=== PATIENT | male | born 1945 | race Caucasian/White ===

== ENCOUNTER 2016-05-08 11:01 | Emergency (ER) | payer MEDICARE ==
[2016-05-08] MEDS ORDERED: Tobramycin Sulfate 0.3% Ophth Susp 5 ml Bottle ONE (11:24)
== END 2016-05-08 11:30 | disposition home or self-care (01) ==
LOC: MADERS 11:01
DX: H10.9 Unspecified conjunctivitis (principal)
CPT/HCPCS: 99282

== ENCOUNTER 2018-01-12 17:43 | Emergency (ER) | payer MEDICARE ==
[~2018-01-12 17:43] MED LIST: Sodium Chloride 0.9% 1,000 ML BAG ONE
[2018-01-12 18:38] LABS: #Basophils 0.1 thou/uL (0.0-0.2); #Eosinphils 0.1 thou/uL (0.0-0.7); #Monocytes 0.9 thou/uL (0.11-0.59); #Neutrophils 8.1 thou/uL (1.40-6.50); %Basophils 0.7 % (0.0-1.0); %Eosinophils 0.5 % (0.0-10.0); %Lymphocytes 24.9 % (21.0-51.0); Hemoglobin 12.9 g/dL (14.0-18.0); Mean Corpuscular HGB CONC 32.5 g/dL (32.0-36.0); Mean Corpuscular Hemoglobin 26.1 pg (27.0-31.0); Mean Corpuscular Volume 80.3 fL (78.0-98.0); Mean Platelet Volume 8.3 fL (7.4-10.4); Platelet Count 331 thou/uL (130-400); RBC Distribution Width 12.6 % (11.5-14.5); Red Blood Cell (RBC) Count 4.94 mill/uL (4.70-6.10); White Blood Cell (WBC) Count 12.1 thou/uL (4.8-10.8)
[2018-01-12 18:55] LABS: ALT (SGPT) 11 U/L (8-55); AST (SGOT) 15 U/L (5-34); Albumin 3.8 g/dL (3.4-4.8); Alkaline Phosphatase 76 U/L (40-150); Anion Gap 15 mmol/L (10-20); BUN (Urea Nitrogen) 12 mg/dL (8.4-25.7); Bilirubin, Total 0.8 mg/dL (0.2-1.2); Calc. Creatinine Clearance 0 mL/min (70-130); Calcium 9.4 mg/dL (7.8-10.44); Carbon Dioxide 25 mmol/L (23-31); Chloride 104 mmol/L (98-107); Estimated GFR-MDRD Greater than 90; Glucose 103 mg/dL (83-110); Lipase 31 U/L (8-78); Potassium 3.9 mmol/L (3.5-5.1); Protein, Total 6.8 g/dL (5.8-8.1); Sodium 140 mmol/L (136-145)
[2018-01-12 18:56] LABS: Troponin I Less than 0.010 ng/mL (< 0.028)
[2018-01-12] MEDS ORDERED: Ondansetron PF 4 MG/2 ML Vial ONE ×2 (19:16→21:59)
[2018-01-12] MEDS ORDERED: Morphine 4 MG/ML VIAL ONE (19:32)
--- NOTE | 2018-01-12 21:25 | CT ---
CT CONTRAST ENHANCED IMAGES OF THE ABDOMEN AND PELVIS: 01/12/18 HISTORY: Lower abdominal pain for five months. Contrast enhanced CT images of the abdomen and pelvis is obtained after administration of IV and oral contrast. Comparison made to previous exam from 11/01/17. CT images demonstrate the lung bases to be unremarkable. No evidence of free intraperitoneal air or f luid seen. The liver and spleen, gallbladder and pancreas are unremarkable. Adrenal glands and kidneys are unrem arkable. Anterior abdominal wall incision is seen. Numerous and extensively dilated loops of small bowel seen involving the jejunum, duodenum, and the m ajority of the ileum. The distal ileum is more of normal caliber. Findings concerning for small bowel obstruction. The exact point of transition is difficult to see on CT; however it appears to have dil atation in all of the jejunum and the proximal portion of the ileum. I suspect that the area of calib er change is likely in the mid ileum. The terminal ileum is unremarkable. There does appears to be some thickening also seen in the mucosa of the ascending colon. Some moderat e transverse and descending colonic mucosal thickening also seen. Findings may represent changes of c olitis. IMPRESSION: Extensive small bowel dilatation concerning for small bowel obstruction. POS: [facility]
== END 2018-01-12 22:39 | disposition short-term general hospital (02) ==
LOC: MADERS 17:43
DX: K56.609 Unspecified intestinal obstruction, unspecified as to partial versus complete obstruction (principal); K52.9 Noninfective gastroenteritis and colitis, unspecified; Z79.899 Other long term (current) drug therapy; Z79.891 Long term (current) use of opiate analgesic
CPT/HCPCS: 74177; 80053; 82553; 83690; 84484; 85025; 96361; 96374; 96375; J2270; J2405; J7050

== ENCOUNTER 2022-07-16 00:50 | Emergency (ER) | payer OTHER, MEDICARE ==
[2022-07-16] MEDS ORDERED: Morphine 4 MG/ML VIAL ONE (01:47)
[2022-07-16] MEDS ORDERED: CEFAZOLIN 2 GM VIAL ONE (01:47)
[2022-07-16] MEDS ORDERED: Boostrix 0.5 ML (Tdap) VIAL (>/=7 yrs of age) ONE (01:47)
[2022-07-16] MEDS ORDERED: Sodium Chloride 0.9% 100 ML BAG ONE (08:55)
== END 2022-07-16 02:14 | disposition short-term general hospital (02) ==
LOC: MADERS 00:50
DX: S42.302B Unspecified fracture of shaft of humerus, left arm, initial encounter for open fracture (principal); F17.220 Nicotine dependence, chewing tobacco, uncomplicated; I10 Essential (primary) hypertension; Z79.899 Other long term (current) drug therapy; W01.0XXA Fall on same level from slipping, tripping and stumbling without subsequent striking against object, initial encounter
CPT/HCPCS: 24500; 90471; 90715; 96365; 96375; J2270; J3490

== ENCOUNTER 2024-04-16 13:52 | Emergency (ER) | payer MEDICARE ==
[2024-04-16 14:47] LABS: Hematocrit 38.1 % (42.0-52.0); Hemoglobin 12.3 g/dL (14.0-18.0); Mean Corpuscular HGB CONC 32.2 g/dL (32.0-36.0); Mean Corpuscular Hemoglobin 27.1 pg (27.0-31.0); Mean Corpuscular Volume 84.2 fl (78.0-98.0); Platelet Count 342 10x3/uL (130-400); RBC Distribution Width 12.4 % (11.5-14.5); Red Blood Cell (RBC) Count 4.52 mill/uL (4.70-6.10); White Blood Cell (WBC) Count 21.3 10x3/uL (4.8-10.8)
[2024-04-16 14:48] LABS: Manual Diff?? YES; Mean Platelet Volume 7.1 fL (7.4-10.4)
[2024-04-16] MEDS ORDERED: HYDROcodone/Acetaminophen 5/325 mg Tablet ONE (14:48)
[2024-04-16 14:58] LABS: MDiff Complete? YES
[2024-04-16 14:59] LABS: Band 1 % (5-11); Lymphocytes 7 % (21-51); Monocytes 6 % (0-10); Neutrophil 86 % (42-75); Platelet Adequacy Comment Appears Adequate
[2024-04-16 15:02] LABS: ALT (SGPT) 20 U/L (Less than 45); AST (SGOT) 36 U/L (11-34); Albumin 2.7 g/dL (3.1-4.5); Alcohol Less than 10.0 mg/dL (Less than 10); Alkaline Phosphatase 65 U/L (40-110); Anion Gap 15 mmol/L (10-20); BUN (Urea Nitrogen) 18 mg/dL (8.4-25.7); Calc. Creatinine Clearance 0 mL/min (70-130); Calcium 8.9 mg/dL (7.8-10.44); Carbon Dioxide 21 mmol/L (23-31); Chloride 99 mmol/L (98-107); Estimated GFR 84; Globulin 4.7 g/dL (2.4-3.5); Glucose 91 mg/dL (83-110); Protein, Total 7.4 g/dL (5.8-8.1); Sodium 131 mmol/L (136-145)
[2024-04-16 15:29] LABS: Bilirubin Small (Negative); Blood, Urine Trace (Negative); Clarity Clear (Clear); Glucose, Urine (Dipstick) Negative (Negative); Ketone, Urine 80 mg/dL (Negative); Leukocyte Negative (Negative); Nitrite Negative (Negative); Protein, Urine (Dipstick) 100 mg/dL (Neg-Trace); Specific Gravity, Urine 1.015 (1.005-1.030)
[2024-04-16 15:36] LABS: Bacteria/HPF Rare-Few HPF (None Seen); CAUTI Indications for Culture Dysuria,urgency,freq; Mucous/LPF Few LPF (<2+); Squamous Epithelial 0-3 HPF (0-3); Urine Culture Reflex No No; WBC/HPF 0-3 HPF (0-3)
[2024-04-16] MEDS ORDERED: Piperacillin/Tazobactam 4.5 GM VIAL ONE (15:41)
[2024-04-16] MEDS ORDERED: Sodium Chloride 0.9% 100 ML ONE (15:42)
[2024-04-16] MEDS ORDERED: Vancomycin HCl 500 MG VIAL ONE (16:28)
[2024-04-16] MEDS ORDERED: Vancomycin 1 GM VIAL ONE (16:28)
[2024-04-16] MEDS ORDERED: Sodium Chloride 0.9% 250 ML 250 ML ONE (16:28)
== END 2024-04-16 19:26 | disposition short-term general hospital (02) ==
LOC: MADERS 13:52
DX: R07.89 Other chest pain (principal); M79.601 Pain in right arm; J18.9 Pneumonia, unspecified organism; D72.829 Elevated white blood cell count, unspecified; J90 Pleural effusion, not elsewhere classified; I10 Essential (primary) hypertension; F17.220 Nicotine dependence, chewing tobacco, uncomplicated; W18.30XA Fall on same level, unspecified, initial encounter; Y93.89 Activity, other specified; M25.50 Pain in unspecified joint
CPT/HCPCS: 36415; 51702; 70450; 71250; 72125; 80053; 80307; 81001; 83605; 84484; 85025; 87040; 93005; 94760; 96365; 96366; 96367; J2543; J3370; J7050